=== PATIENT | male | born 1940 | race Caucasian/White ===

== ENCOUNTER 2019-02-10 09:33 | Outpatient (CLI) | payer BC, SELFPAY ==
--- NOTE | 2019-02-10 09:29 | DI.RAD_ITS ---
SYMPTOMS/DIAGNOSIS: LT KNEE PAIN LEFT KNEE: Two views were obtained. There is minimal hypertrophic spurring of the bones of the knee. No other bony or soft tissue abnormality is seen.
== END 2019-02-10 09:53 ==
PROVIDERS: PCP Neuromusculoskeletal Medicine & OMM; Visit Provider Physician Assistant
DX: M25.562 Pain in left knee (principal)
CPT/HCPCS: 73560

== ENCOUNTER → 2021-07-09 10:45 | Outpatient (BNVA) | payer MEDICARE, OTHER, SELFPAY | PROVIDERS: PCP Neuromusculoskeletal Medicine & OMM; Referring Provider Neuromusculoskeletal Medicine & OMM; Visit Provider Student in an Organized Health Care Education/Training Program | DX: M75.81 Other shoulder lesions, right shoulder (principal); M17.11 Unilateral primary osteoarthritis, right knee | CPT/HCPCS: 20610; 99204; 99214; J1040 ==

== ENCOUNTER 2021-07-26 09:49 | Outpatient (CLI) | payer MEDICARE, OTHER, SELFPAY ==
--- NOTE | 2021-07-26 09:00 | DI.RAD_ITS ---
Exam(s) XR STANDING ALIGNMENT XR KNEE RT 1V EXAM: XR STANDING ALIGNMENT and XR knee RT 1 V CLINICAL HISTORY: R knee arthritis, evaluate alignment. TECHNIQUE: 2D digital imaging was performed. Six views were obtained. COMPARISON: CR RIGHT KNEE LIMITED 1 OR 2 VIEW from 01/14/2018 FINDINGS: There are mild degenerative changes seen in the hips. Moderately severe degenerative changes are note d in the lumbar spine. Moderately severe degenerative changes are noted in the right hip. Findings in clude joint space narrowing subchondral sclerosis and periarticular spurring. The findings are most m arked in the medial and patellofemoral joints. There is a small joint effusion on the right knee. In the left knee, more mild degenerative changes are present with mild joint space narrowing and periart icular spurring noted in the medial femoral tibial joint. The ankles are well maintained. Atheroscler osis is present in the soft tissues. The right lower extremity measures 86.7 cm. The left lower extre mity measures 87.6 cm. IMPRESSION: Moderately severe osteoarthritis in the right knee. DATA REPOSITORY: RADIATION DOSE DELIVERED:
== END 2021-07-26 09:50 | disposition home or self-care (01) ==
LOC: DIORS 09:49
PROVIDERS: PCP Neuromusculoskeletal Medicine & OMM; Referring Provider Neuromusculoskeletal Medicine & OMM; Visit Provider Student in an Organized Health Care Education/Training Program
DX: M17.11 Unilateral primary osteoarthritis, right knee (principal)
CPT/HCPCS: 20610; 73560; 77073; J1040

== ENCOUNTER → 2021-10-08 09:56 | Outpatient (BNVA) | payer MEDICARE, OTHER, SELFPAY | PROVIDERS: PCP Neuromusculoskeletal Medicine & OMM; Referring Provider Neuromusculoskeletal Medicine & OMM; Visit Provider Student in an Organized Health Care Education/Training Program | DX: M75.101 Unspecified rotator cuff tear or rupture of right shoulder, not specified as traumatic (principal); M12.811 Other specific arthropathies, not elsewhere classified, right shoulder; M75.82 Other shoulder lesions, left shoulder | CPT/HCPCS: 20610; 99214; J1040 ==

== ENCOUNTER 2021-12-11 09:21 | Outpatient (CLI) | payer MEDICARE, OTHER, SELFPAY ==
--- NOTE | 2021-12-11 08:45 | DI.RAD_ITS ---
Exam(s) XR SHOULDER RT COMPLETE 2+V EXAM: XR SHOULDER RT COMPLETE 2+V CLINICAL HISTORY: right rotator cuff f/u. TECHNIQUE: 2D digital imaging was performed. COMPARISON: CR XR SHOULDER RT COMPLETE 2+V from 09/12/2020 CR XR SHOULDER LT COMPLETE 2+V from 12/11/2021 FINDINGS: Again noted is evidence of previous rotator cuff surgery with 2 fastener devices at the level the gre ater tuberosity of the humeral head, these appearing unchanged. There has also been decompression agrawal rgery at the ipsilateral AC joint which appears widened. Subacromial space is somewhat diminished al though there is no prominent superior subluxation of the humeral head in the glenoid fossa. Mild deg enerative changes in the glenohumeral joint are noted including a small osteophyte on the inferior ar ticular surface of the humeral head. Bone density is normal. No osseous lesions. IMPRESSION: DATA REPOSITORY: RADIATION DOSE DELIVERED:
--- NOTE | 2021-12-11 08:45 | DI.RAD_ITS ---
Exam(s) XR SHOULDER LT COMPLETE 2+V EXAM: XR SHOULDER LT COMPLETE 2+V CLINICAL HISTORY: left rotator cuff f/u. TECHNIQUE: 2D digital imaging was performed. COMPARISON: CR LEFT SHOULDER COMPLETE from 12/25/2016 CR XR SHOULDER RT COMPLETE 2+V from 09/12/2020 FINDINGS: No evidence of fracture or dislocation. There are mild-moderate degenerative changes in the glenohum eral joint including small osteophytes on the inferior articular surfaces of the osseous glenoid and adjacent humeral head. There are no calcific densities in the subacromial space. Mild degenerative changes are noted in the AC joint. Bone density is normal. IMPRESSION: DATA REPOSITORY: RADIATION DOSE DELIVERED:
== END 2021-12-11 09:22 | disposition home or self-care (01) ==
LOC: DIORS 09:22
PROVIDERS: PCP Neuromusculoskeletal Medicine & OMM; Referring Provider Neuromusculoskeletal Medicine & OMM; Visit Provider Student in an Organized Health Care Education/Training Program
DX: M75.82 Other shoulder lesions, left shoulder (principal); M19.012 Primary osteoarthritis, left shoulder; M19.011 Primary osteoarthritis, right shoulder
CPT/HCPCS: 99214; 73030

== ENCOUNTER 2021-12-19 00:57 | Outpatient (CLI) | payer MEDICARE, SELFPAY ==
--- NOTE | 2021-12-19 06:45 | DI.CT_ITS ---
Exam(s) CT UPPER EXTREMITY RT WO EXAM: CT UPPER EXTREMITY RT WO CLINICAL HISTORY: RTSA planning,ARTHRITIS RT GLENOHUMERAL JOINT,M19.011. TECHNIQUE: Imaging Protocol: Axial computed tomography images with coronal and sagittal reformatted images were created and reviewed. COMPARISON: CR XR SHOULDER RT COMPLETE 2+V from 12/11/2021 FINDINGS: This is a nondiagnostic examination for pre-surgical planning. Bones: The osseous structures and articular surfaces are intact. There is superior subluxation of t he humeral head which may reflect chronic rotator cuff tear. No cellulitic or osteomyelitic changes are identified. Degenerative changes are seen in the glenohumeral joint with joint space narrowing a nd periarticular spurring. There also degenerative changes seen at the acromioclavicular joint. No lytic or sclerotic lesions are identified. Postsurgical changes are seen in the humeral head. Soft Tissues: Atherosclerosis of the thoracic aorta is noted. Moderate centrilobular and paraseptal emphysematous changes are present in the lungs. There is a 3 mm nodule in the right upper lobe. IMPRESSION: 1. Postsurgical and degenerative changes seen in the right shoulder. 2. 3 mm right upper lobe nodule. For high risk patients, (history of smoking or other relevant histo ry) a follow-up CT scan of the chest in 12 months should be considered. (Kristyn et al., 2017) RADIATION DOSE DELIVERED: 839.9mGy.cm Total DLP 839.9mGy.cm Total DLP DATA REPOSITORY: All CT scans at this facility are submitted to the National Radiology Data Registry (NRDR) Dose Index Registry (DIR) with the [employer] (ACR). RADIATION OPTIMIZATION: All CT scans at this facility use at least one of these dose optimization te chniques: automated exposure control; mA and/or kV adjustment per patient size (includes targeted exa ms where dose is matched to clinical indication); or iterative reconstruction.
== END 2021-12-19 01:17 ==
PROVIDERS: PCP Neuromusculoskeletal Medicine & OMM; Visit Provider Student in an Organized Health Care Education/Training Program
DX: M19.011 Primary osteoarthritis, right shoulder (principal); R91.8 Other nonspecific abnormal finding of lung field
CPT/HCPCS: 73200

== ENCOUNTER → 2021-12-24 09:39 | Outpatient (BNVA) | payer MEDICARE, SELFPAY | PROVIDERS: PCP Neuromusculoskeletal Medicine & OMM; Referring Provider Neuromusculoskeletal Medicine & OMM | DX: M17.12 Unilateral primary osteoarthritis, left knee (principal); M17.11 Unilateral primary osteoarthritis, right knee | CPT/HCPCS: 20610; J1040 ==

== ENCOUNTER → 2022-01-21 13:07 | Outpatient (BNVA) | payer MEDICARE, SELFPAY | PROVIDERS: PCP Neuromusculoskeletal Medicine & OMM; Referring Provider Neuromusculoskeletal Medicine & OMM; Visit Provider Student in an Organized Health Care Education/Training Program | DX: M75.101 Unspecified rotator cuff tear or rupture of right shoulder, not specified as traumatic (principal); M12.811 Other specific arthropathies, not elsewhere classified, right shoulder; M75.21 Bicipital tendinitis, right shoulder; T81.32XA Disruption of internal operation (surgical) wound, not elsewhere classified, initial encounter; M66.811 Spontaneous rupture of other tendons, right shoulder | CPT/HCPCS: 99214 ==

== ENCOUNTER 2022-02-04 04:11 | Outpatient (CLI) | payer MEDICARE, SELFPAY ==
[2022-02-04 12:28] LABS: Source Nasal/Nares
[2022-02-04 23:08] LABS: COVID-19 PCR Negative (Negative)
== END 2022-02-04 04:12 | disposition home or self-care (01) ==
LOC: LBO 04:11
PROVIDERS: PCP Neuromusculoskeletal Medicine & OMM; Visit Provider Student in an Organized Health Care Education/Training Program
DX: Z20.822 Contact with and (suspected) exposure to COVID-19 (principal); Z01.818 Encounter for other preprocedural examination
CPT/HCPCS: 87635; U0005

== ENCOUNTER 2022-02-06 07:54 | Day surgery (SDC) | payer MEDICARE, SELFPAY ==
[2022-02-06] VITALS (12 sets, daily range): BP systolic 134–168; BP diastolic 57–99; PULSE 49–87; RESP 16–23; TEMP 36.2–36.5; O2SAT 95–98; BMI 25.5
--- NOTE | 2022-02-06 08:24 | W.ANESPRE ---
General Info Date of Service Date Performed: 02/06/22 Height: 5 ft 5 in Weight: 69.7 kg Body Mass Index (BMI): 25.5 Surgical Procedure: Operation Date: 02/06/22 08:40 Proposed Procedure Side Surgeon p Shoulder Total Arthroplasty Reverse, Bicep Tenodesis, and any other indicated procedures Right Harpal Saravia MD Meds Allergies and Home Medications Allergies Allergy/AdvReac Type Severity Reaction Status Date / Time No Known Drug Allergies Allergy Verified 02/06/22 08:51 Home Medication Medication Instructions Recorded Centrum Silver Tablet 1 ea PO DAILY #1 01/27/14 atorvastatin 40 mg tablet 40 mg PO DAILY #1 tab-cap 01/27/14 lisinopril 5 mg tablet 5 mg PO DAILY #1 tab-cap 01/27/14 omega 7-ans-bbv-fish oil 1,000 mg 1,000 mg PO DAILY 12/25/16 (120 mg-180 mg) capsule (Fish Oil) acidophilus 25 million 1 ea PO DAILY 01/14/18 cell-pectin, citrus 100 mg tablet naproxen sodium 220 mg capsule 440 mg PO PRN PRN 01/14/18 (Aleve) aspirin 81 mg tablet,delayed 162 mg PO DAILY tab 07/09/21 release famotidine 10 mg tablet 10 mg PO DAILY 12/11/21 fluticasone propionate 50 1 spray INTRANASAL DAILY 01/21/22 mcg/actuation nasal spray,suspension (Flonase Allergy Relief) Current Visit Medications: Current Medications Generic Name Dose Route Start Last Admin Trade Name Freq PRN Reason Stop Dose Admin Ringer's Solution 1,000 mls @ 100 mls/hr 02/06/22 06:00 IV 03/07/22 23:59 INFUSION ANTHONY Cefazolin Sodium/Dextrose 2 gm in 50 mls @ 100 mls/hr 02/06/22 06:00 Ancef Duplex IVPB 02/06/22 16:00 PREOP ANTHONY Tranexamic Acid 1,000 mg/ 60 mls @ 360 mls/hr 02/06/22 06:00 Sodium Chloride IVPB 02/06/22 16:00 PREOP ANTHONY IV Miscellaneous Supplies 1 each 02/06/22 06:00 Iv Access IV 03/07/22 23:59 DIRECTED ANTHONY Sodium Chloride 0 ml 02/06/22 06:00 Normal Saline Flush 10 Ml Syr IV 03/07/22 23:59 PRN PRN Sodium Chloride 0 ml 02/06/22 06:00 Normal Saline 10 Ml Vial IJ 03/07/22 23:59 DIRECTED PRN Sterile Water 0 ml 02/06/22 06:00 Water,Injection,Sterile 10 Ml Vial IJ 03/07/22 23:59 DIRECTED PRN PFSH Active Problems Active Problems: Problem Status Onset Code Primary osteoarthritis of right knee M17.11 Primary osteoarthritis of left knee M17.12 Tendonitis of left rotator cuff M75.82 Rotator cuff tear arthropathy of right shoulder M75.101, M12.811 Tendonitis of long head of biceps brachii of right shoulder M75.21 Rupture of left proximal biceps tendon S46.212A Medical History Medical History Claudication History of dizziness History of dizziness and giddiness History of peptic ulcer History of ventral hernia ventral incisional hernia Hypertensive disorder Peripheral vascular disease Spinal stenosis of cervical region Spinal stenosis of lumbar region Surgical History Surgical History H/O hernia repair 2018 H/O neck surgery 2016 anterior cervical discectomy w/plated fusion C3/4, 4/5, 5/6 H/O Spinal surgery Lumbar spine surgery 2016 H/O vascular surgery [id number] bypass per pt. History of carpal tunnel release right 2019, right, left [facility] 2016 History of cataract surgery 2019 left, 2020 right History of colonoscopy History of knee surgery 1963, 1977 History of surgery Partial removal of stomach Hx of cervical spine surgery 1988 S/P trigger finger release right ring finger Status post arthroscopy of right shoulder (~2004) Tobacco Smoking/Tobacco Use Status: Former Tobacco Use Alcohol Alcohol Intake: former Substance Use Substance use: Never Substance use type: does not use Vital Signs and Lab Results Vital Signs Most Recent Vital Signs in EMR: Most Recent Vital Signs Temp Pulse Resp BP Pulse Ox 36.5 C 87 16 164/81 H 95 02/06/22 08:17 02/06/22 08:17 02/06/22 08:17 02/06/22 08:17 02/06/22 08:17 Lab Results Blood Type / Crossmatch: No Data to Display Complete Blood Count: No Data to Display Complete Metabolic Panel: No Data to Display Liver Function Panel: No Data to Display Coagulation Panel: No Data to Display Cardiac Panel: No Data to Display Arterial Blood Gas: No Data to Display Venous Blood Gas: No Data to Display Pancreas Panel: No Data to Display Thyroid Panel: No Data to Display Infectious Disease: Coronavirus (COVID-19)(PCR) Negative (Negative) 02/04/22 10:42 02/04/22 Coronavirus 2019 Source Nasal/Nares 02/04/22 10:42 02/04/22 Blood Cultures: No Data to Display Toxicology Panel: No Data to Display Anesthesia Assessment and Plan Anesthesia History Personal History: No History of Anesthesia Complications Family History: No Family History of Anesthesia Complications Exercise Tolerance Exercise Tolerance: Metabolic Equivalents>4 Pertinent Negatives Pertinent Negatives: No Symptoms of GERD, No Major Cardiovascular Symptoms or Complaints, No Major Pulmonary Symptoms or Complaints and No History of CVA/TIA Cardiac & Pulmonary Exam Cardiac Exam: Normal S1/S2 Heart Sounds Pulmonary Exam: Clear Bilateral Breath Sounds Implantable Cardiac Device Does patient have a Pacemaker or an ICD?: No Airway Exam Known Difficult Airway: No Mallampati Class: 3 Mouth Opening: Normal (> 3cm) Thyromental Distance: Greater than 3 cm Neck Range of Motion: Full ROM Neck Circumference: Normal Teeth Condition: Loose or Chipped and Removable Dentures/Plates Upper ASA Classification ASA Score: ASA 2 Emergency Case?: No NPO Status NPO Status: NPO Clears >2 hours, Solids >8 hours Anesthesia Plan Resuscitation Status: Full Code Anesthesia Technique: General Anesthesia Airway Planned: Endotracheal Tube Pain Management: Surgeon and patient request nerve block Monitors Used: Standard Monitors
--- NOTE | 2022-02-06 08:45 | DI.RAD_ITS ---
Exam(s) XR SHOULDER RT COMPLETE 2+V EXAM: XR SHOULDER RT COMPLETE 2+V CLINICAL HISTORY: Postop. TECHNIQUE: 2D digital imaging was performed of the right shoulder. Four images were obtained. AP a nd Y views were obtained. COMPARISON: CR XR SHOULDER RT COMPLETE 2+V from 12/11/2021 FINDINGS: BONES: No acute fracture is present. No bony destructive lesion is seen. JOINTS: The patient is now status post right total reverse shoulder replacement. SOFT TISSUE: Postsurgical changes are seen in the soft tissues. IMPRESSION: Status post right shoulder replacement. DATA REPOSITORY: RADIATION DOSE DELIVERED:
[2022-02-06] MEDS: Lactated Ringers 1,000 ML 100 ML IV ×2 (08:52→13:07)
[2022-02-06] MEDS: ceFAZolin 2 GM/50 ML BAG IVPB (09:17)
--- NOTE | 2022-02-06 09:38 | W.ANESNERVE ---
Nerve Block Single Injection Procedure Date and Time Date Performed: 02/06/22 Procedure Start: 08:55 Location Where Procedure Performed Procedure Location: Day Surgery Unit Reason Performed: Postoperative Analgesia Requesting Provider: Harpal Saravia Timeout Performed Timeout Performed: Yes Monitoring Used ECG, Blood Pressure and SpO2 Sterility Sterility: Hand Hygiene, Surgical Cap, Surgical Mask, Sterile Gloves, Eye Protection and Chlorhexidine Sedation Given During Procedure Sedation Given (Indicate Dose Given): Versed IV Dose:: 2mg Patient Mental Status Patient Mental Status: Sedate with meaningful communication Nerve Block 1st Nerve Block: Laterality: Right Block Type: Interscalene Needle / Catheter Used: 100mm SonoPlex II Local Anesthetic Bolus (Indicate Dose Given): Lidocaine used for local infiltration of skin, Bupivacaine 0.5% Dose:: 10ml and Exparel Dose:: 10ml Additives (Indicate Dose Given): None Ultrasound: Sterile probe cover and gel used Ultrasound Image Saved?: Yes Nerve Stimulator: Not Used Paresthesia: None Procedure Tolerated: Patient tolerated well Procedure Outcome: Successful Performed By: Jenniffer Kang Supervised By: Mita Eason
[2022-02-06] MEDS: Bupivacaine 0.25% Pres-Free 30 ML VIAL (10:08)
--- NOTE | 2022-02-06 14:14 | W.ANESPOSTOP ---
Postoperative Evaluation Date, Time and Location Date Performed: 02/06/22 Time Performed: 14:14 Patient Location: Day Surgery Unit Vital Signs Most Recent Imported Vital Signs: Most Recent Vital Signs Temp Pulse Resp BP Pulse Ox 36.2 C L 53 L 23 151/77 H 96 02/06/22 13:55 02/06/22 13:55 02/06/22 13:55 02/06/22 13:55 02/06/22 13:55 Pain Score Most Recent Pain Score: Most Recent Pain Score Pain Level 3 02/06/22 13:55 Assessment Mental Status: Arousable with meaningful communication Airway and Respiratory Function: Patent airway with normal (patient baseline) respiratory exam Cardiovascular Function: Hemodynamically Stable Hydration Status: Adequately Hydrated Nausea & Vomiting: No Nausea or Vomiting Pain: Pain is tolerable per patient Peripheral Nerve Block: Regional nerve block not resolved at time of post operative discharge
[2022-02-06] MEDS: oxyCODONE 5 MG TAB PO (15:01)
--- NOTE | 2022-02-06 15:09 | PDOC.DSDIS_ITS ---
Discharge Plan Disposition Patient Disposition: HOME Condition: Stable Discharge Details Reason For Visit: Right shoulder surgery Attending Provider: Harpal Saravia Primary Care Provider: Gael Eisenberg Home Meds and New Rx's Prescriptions: New naproxen 250 mg tablet 250 - 500 mg PO BID PRNQty: 40 0RF Rx Instructions: take with a meal oxycodone 5 mg tablet 5 - 10 mg PO Q4H MDD 30 mg PRN (Reason: moderate to severe pain) Qty: 18 0RF Continued aspirin 81 mg tablet,delayed release (DR/EC) 162 mg PO DAILY 0RF famotidine 10 mg tablet 10 mg PO DAILY 0RF fluticasone propionate [Flonase Allergy Relief] 50 mcg/actuation spray,suspension 1 spray intranasal DAILY 0RF Rx Instructions: administer into each nostril atorvastatin 40 MG tablet 40 mg PO DAILY Qty: 1 0RF lisinopril 5 MG tablet 5 mg PO DAILY Qty: 1 0RF CENTRUM SILVER TABLET 1 EACH tablet 1 ea PO DAILY Qty: 1 0RF omega 6-zfj-hhx-fish oil [Fish Oil] 1,000 MG capsule 1,000 mg PO DAILY 0RF acidophilus-pectin, citrus 1 EACH tablet 1 ea PO DAILY 0RF Discontinued ibuprofen 200 MG capsule 200 mg PO PRN PRN0RF Label Comments: 01.14.18 pt states he uses Aleve instead of ibuprofen.HE naproxen sodium [Aleve] 220 MG capsule 440 mg PO PRN PRN0RF Discharge Instructions Additional Instructions: Surgery: Right reverse total shoulder arthroplasty with biceps tenodesis and removal of hardware Activity: Do not lift anything heavier than a coffee. You should keep your arm a t your side in a neutral position at all times except for gentle range of motion exercises, physical therapy, and essential activities. You should use the sling whenever you are out of the house. You may have to adjust the abduction pillow or remove it for comfort. At home it is best to remove the sling and rest the arm on a pillow at your side or support the operative side with your other hand. A physical therapy prescription will be sent electronically to start in about 3 weeks. Reverse TSA Protocol: Postoperative Weeks 0-6 ?Immobilization: Sling may be removed for therapeutic exercises, resting in bed or chair, and bathing ?Motion exercises: Pendulum exercises, elbow range- of-motion exercises, wrist [id number]-[id number] exercises, and group sales manager strengthening ?Restrictions: No active internal rotation or backwards extension Postoperative Weeks 6-12 ?Immobilization: Sling discontinued ?Motion exercises: Shoulder passive range of motion, advancing to active- assisted range of motion, and finally active range of motion with a goal of forward flexion to 90? and external rotation of 20? ?Strengthening exercises: Light, resisted forward flexion, external rotation, and abduction limited to isometric exercises and therapy bands with concentric motions only. Continue group sales manager strengthening ?Restrictions: No resisted internal rotation or backwards extension. No scapular retraction exercises with therapy bands Postoperative Months 3-12 ?Motion exercises: Increase [id number]-[id number] exercises to achieve full motion, with passive stretching at end ranges ?Strengthening: Begin resisted, internal rotation and backwards extension initially with isometric exercises advancing to light therapy bands and then weights. Advance other shoulder strengthening exercises to include the rotator cuff, deltoid, and scapular stabilizers. Advance to functional strengthening, including plyometric exercises and core strengthening. Prescriptions: Resume home Aspirin 81 mg twice daily starting tomorrow morning Naproxen 250 mg take 1-2 every 12 hours with a meal as needed for moderate pain Oxycodone 5 mg take 1-2 every 4-6 hours as needed for severe pain You may use ibip-ivx-uzrbmmf Tylenol (acetaminophen) as needed for mild pain. These pain medications may be taken all at once or in different combinations as needed. Also, recommend Colace (docusate) as a stool softener as surgery and pain medicine cause constipation. Dressings: Leave dressing in place until follow-up. Keep clean and dry at all times. No showers please. Follow-up: 10-[address] Saravia Please call the office during business hours with any questions or concerns. Let us know right away if you develop any redness, drainage, fevers, chest pain, or trouble breathing. Do not drink alcohol or drive for at least 24 hours after anesthesia. Stand Alone Forms: Anesthesia Discharge Inst., Junior.Nerve Block Instructions, Braulio Milton ([facility]) Referrals: Harpal Saravia MD [ [facility] STAFF PHYSICIAN] - Discharge Orders Discharge Orders: Discharge Order (Routine); Ordered 02/06/22 Ordered By: Harpal Saravia DS: Diagnosis Discharge Diagnosis (1) Rotator cuff tear arthropathy of right shoulder: Status: Acute (2) Tendonitis of long head of biceps brachii of right shoulder: Status: Acute
--- NOTE | 2022-02-06 15:22 | W.PM.OP ---
Date of service: 02/06/22 Time of Service: 15:09 Operative Note Operative Note DATE OF PROCEDURE: 02/06/22 PRE-OP DIAGNOSIS: Right: 1. Rotator cuff arthopathy 2. Long head of the biceps tendinopathy 3. Retained prior greater tuberosity rotator cuff repair metallic screws POST-OP DIAGNOSIS: same PROCEDURE: Right: 1. Reverse total shoulder arthroplasty, CPT # 30313 2. Open biceps tenodesis, CPT # 58669 3. Removal of deep hardware, CPT #15934: 3x metal corkscrew suture anchors greater tuberosity The lead recreation assistant was medically required as this procedure involves retraction, protection of neurovascular structures, and manipulation of multiple instruments and implants at the same time, which cannot be done without a skilled lead recreation assistant. SURGEON: Harpal Saravia COMPUTER SCIENCE TEACHER: Miguel Bradford Refer to Anesthesia Record ESTIMATED BLOOD LOSS: 150 PATHOLOGY: none sent TOURNIQUET TIME: 0 COMPLICATIONS: None Patient was transported to: PACU Patient's condition: stable Implants: [employer] modular glenoid system baseplate 24 mm+2mm lateralized [employer] modular glenoid system central screw 25 mm [employer] modular glenoid system peripheral locking screws 32 mm inferior, 24 mm superior, 16mm posterior, 20mm anterior [employer] modular glenoid system glenosphere 39 +4 mm lateralized [employer] humeral stem 135 degrees size 9 [employer] suture cup size 39 central offset [employer] humeral spacer size 39 +9 mm [employer] humeral insert size 39 +3 mm Indications: Please see complete medical record for details. Findings: Significant long head of the biceps tendon tenosynovitis. Largely intact but contractured subscapularis. Near?complete supraspinatus and infraspinatus rotator cuff tear. Moderate eccentric glenoid wear posteriorly and superiorly. Procedure Description: In the operating room, general anesthesia was induced. The patient was positioned beachchair on the operating room table. All bony prominences were well-padded. Preoperative antibiotics were administered. The shoulder was prepped and draped in the usual sterile fashion for shoulder arthroplasty. The correct patient, procedure, and side of the procedure were all verified prior to incision. The deltopectoral approach was taken to the anterior shoulder. It was preinjected superficially with 30 cc of lidocaine bupivacaine with epinephrine mixture. Care was taken to bluntly dissect the interval between the deltoid and pectoralis major muscles and to identify the cephalic vein within its fat stripe. The the vein was mobilized laterally. Subdeltoid space and conjoined tendon were freed of adhesions. The long head of the biceps tendon was identified just lateral to the lesser tuberosity. The uppermost margin of the pectoralis major tendon was released from the proximal humerus. The long head of the biceps tendon was tenodesed in situ using 2x SutureTape in a pfmgmn-lf-jhaal fashion securing it superior margin the pectoralis major tendon. The biceps tendon was amputated and followed proximally to identify the rotator interval. A subscapularis peel was performed taking care to release the entirety tendon in a full-thickness fashion from superior to inferior and lateral to medial while bringing the arm gradually into external rotation. Care was taken to avoid the axillary nerve by only working on the bone inferiorly and medially. The subscapularis was later tagged with suture tape and the stitch used for traction and release anteriorly and posteriorly to confirm adequate excursion and tissue quality for later repair. Appropriate coagulation was achieved especially inferiorly. There were 2 prominent suture anchors in the humeral head that were removed with a rongeur leaving a small bone void at the superior central and lateral greater tuberosity. The surgical neck was cut using an oscillating saw and the head bone brought back table in case there was a need for future bone grafting. The proximal humeral protection plate was used to provisionally confirm suture cup and glenosphere size and then gently impacted over the bone cut. Attention was then turned to the glenoid and retractors were placed and a 360 degree release performed using the long head of the biceps remnant to remove soft tissue about the glenoid rim. The axillary nerve was palpated but not exposed inferiorly. Care was taken inferiorly to work on bone only between 5 and 7:00 o'clock and bluntly elevate tissues inferiorly. The glenoid was decorticated soft tissue and a minimal amount of residual cartilage. Once adequate exposure had been achieved, the VIP guide was placed on the glenoid and used to confirm placement and trajectory of the central guidepin. The guidepin was inserted by hand using the VIP location and trajectory as a reference, and advanced just into the far cortex ensuring adequate central screw length. Depth gauge was used to confirm appropriate central screw length. The central reamer followed by the peripheral reamer were then used to the appropriate depths. There was appropriate eccentric reaming inferiorly and anteriorly. The drill and then tap for the central screw was then used and withdrawn with the guidewire in place confirming appropriate length. The baseplate was screwed and fully compressed onto the glenoid surface. Testing the glenoid baseplate resulted in movement through the entire scapula. The over baseplate reamer was used to confirm adequate peripheral reaming had been achieved. The locking guide and drill were used to drill for inferior and superior baseplate locking screws. The depth gauge was used to confirm appropriate screw length and they were each gently engaged. This was repeated for the anterior and posterior locking screws, and then all tightened once all screws were placed to reduce risk of rotating the baseplate. The lateralized glenosphere was applied with the performance improvement manager and then impacted to engage the Hughes taper. It was then locked with appropriate countersinking of the setscrew. The glenosphere was inspected and found to have good fit, appropriate positioning, and no soft tissue or bony impingement especially inferiorly. Attention was then turned back to the proximal humerus, which was delivered from the wound and maintained in external rotation. The protective plate was removed and reamers were started appropriately posterior to the bicipital groove taking care to maintain lateralized alignment so as to be straight in line with the humeral canal. Reaming was done up to size 7. The broaches were sequentially used to open the proximal humerus starting with a size 5 and going up to size 9 and sunk to the appropriate depth while maintaining approximately 30 degrees retroversion. The size 9 had good metaphyseal fit and rotational control the humerus. The central guide was used to ream for the suture cup. The humeral trial cup was connected. Trialing was commenced with +3mm. The shoulder was reduced and taken through range of motion. It was felt too slightly loose in terms of stability and tension on the conjoined tendon and deltoid. Trialing components were then built up to +12 total with appropriate tension on the deltoid, conjoined tendon, and good stability. Range of motion was tested past 90 degrees forward elevation, 75 degrees external rotation, internal rotation to the patient's side, and there was no appreciable impingement or notching with the arm in full adduction. The trial components were removed from the proximal humerus. The wound was copiously irrigated with normal saline. A 2 mm drill was used to drill 2 drill holes in the bicipital groove for later subscapularis suture passage repair. The the proximal humeral stem and suture cup were assembled on the back table. They were brought over to the proximal humerus. 2 pairs of suture tape were then passed through the lateral suture cup holes and then withdrawn with a Hewson suture passer through the drill holes. Additional 2 pairs of sutures were brought through the medial aspect of the suture cup for later repair. Humerus and suture cup were appropriately impacted into the proximal humerus. There were tested and found of excellent rotational control and fixation. Trial reduction for stability and range of motion was done again with the +9 mm combination liner confirming inadequate tension and stability with +12 mm combination showing best stability and tension with +15 mm obviously too much. The trial liner was removed and the definitive liner connected. Shoulder was reduced and these final implants demonstrated excellent range of motion and stability. The shoulder was copiously irrigated with Betadine and then normal saline. Vancomycin powder was distributed deeply about the shoulder and through subcutaneous tissues. The arm was placed in 45 degrees of external rotation. The subscapularis was reduced and repaired over the implant to the lessor tuberosity using the pairs of SutureTape sutures from the suture cup in a speed bridge type fashion. The arm was taken past 60 degrees of external rotation without any motion limitation or displacement of the subscapularis repair. The deltopectoral interval was well opposed. Subcutaneous tissue was irrigated then closed using 2-0 Monocryl in a buried interrupted fashion. The skin was closed using 3-0 Monocryl in a buried subcuticular fashion. Skin glue was applied to the incision. A silver impregnated bandage was placed over the incision. The extremity was placed into a shoulder immobilizer. The patient awoke from anesthesia without complication and was taken to the recovery room in stable condition.
[2022-02-06] MEDS: ceFAZolin 1 GM/50 ML BAG IVPB (15:47)
== END 2022-02-06 16:52 | disposition home or self-care (01) ==
PROVIDERS: PCP Neuromusculoskeletal Medicine & OMM; Visit Provider Student in an Organized Health Care Education/Training Program
PROC: (CPT 23472; principal; 2022-02-06 08:30)
DX: M75.101 Unspecified rotator cuff tear or rupture of right shoulder, not specified as traumatic (principal); M75.21 Bicipital tendinitis, right shoulder; I73.9 Peripheral vascular disease, unspecified; I10 Essential (primary) hypertension
CPT/HCPCS: 20680; 23430; 23472; 76942; 73030; C1781; J0690; J1100; J1885; J2250; J2370; J2405; J2704

== ENCOUNTER 2022-02-19 10:38 | Outpatient (CLI) | payer MEDICARE, SELFPAY ==
--- NOTE | 2022-02-19 10:15 | DI.RAD_ITS ---
Exam(s) XR SHOULDER RT COMPLETE 2+V EXAM: XR SHOULDER RT COMPLETE 2+V CLINICAL HISTORY: s/p right TSA TECHNIQUE: COMPARISON: CR XR SHOULDER RT COMPLETE 2+V from 02/06/2022 FINDINGS: Three views were obtained and show a reverse shoulder prosthesis in position. Components appear well seated. No other significant bony abnormality seen. IMPRESSION: RADIATION DOSE DELIVERED: Total DLP
== END 2022-02-19 10:39 | disposition home or self-care (01) ==
LOC: DIORS 10:38
PROVIDERS: PCP Neuromusculoskeletal Medicine & OMM; Referring Provider Neuromusculoskeletal Medicine & OMM; Visit Provider Physician Assistant
DX: Z96.611 Presence of right artificial shoulder joint (principal); Z47.1 Aftercare following joint replacement surgery; M75.101 Unspecified rotator cuff tear or rupture of right shoulder, not specified as traumatic; M12.811 Other specific arthropathies, not elsewhere classified, right shoulder; M75.21 Bicipital tendinitis, right shoulder
CPT/HCPCS: 73030

== ENCOUNTER 2022-04-09 11:14 | Outpatient (CLI) | payer MEDICARE, SELFPAY ==
--- NOTE | 2022-04-09 10:45 | DI.RAD_ITS ---
Exam(s) XR SHOULDER RT COMPLETE 2+V EXAM: XR SHOULDER RT COMPLETE 2+V CLINICAL HISTORY: RIGHT SHOULDER F/U. TECHNIQUE: 2D digital imaging was performed. COMPARISON: CR XR SHOULDER RT COMPLETE 2+V from 02/19/2022 FINDINGS: 3 views There is stable position alignment of the components of prosthesis. No fracture. Nor loosening evid ent. IMPRESSION: DATA REPOSITORY: RADIATION DOSE DELIVERED:
== END 2022-04-09 11:15 | disposition home or self-care (01) ==
LOC: DIORS 11:15
PROVIDERS: PCP Neuromusculoskeletal Medicine & OMM; Referring Provider Neuromusculoskeletal Medicine & OMM; Visit Provider Student in an Organized Health Care Education/Training Program
DX: Z96.611 Presence of right artificial shoulder joint (principal); M17.11 Unilateral primary osteoarthritis, right knee; M17.12 Unilateral primary osteoarthritis, left knee; S46.212A Strain of muscle, fascia and tendon of other parts of biceps, left arm, initial encounter; X58.XXXA Exposure to other specified factors, initial encounter
CPT/HCPCS: 20610; 99214; 73030; J1040

== ENCOUNTER 2022-05-06 13:35 | Outpatient (CLI) | payer MEDICARE, SELFPAY ==
--- NOTE | 2022-05-06 13:15 | DI.RAD_ITS ---
Exam(s) XR SHOULDER RT COMPLETE 2+V EXAM: XR SHOULDER RT COMPLETE 2+V CLINICAL HISTORY: right shoulder f/u. TECHNIQUE: 2D digital imaging was performed. COMPARISON: CR XR SHOULDER RT COMPLETE 2+V from 04/09/2022 FINDINGS: 3 views Reverse prosthesis again noted. Components appear to remain in satisfactory position alignment. No fracture or loosening evident. There is no radiographic evidence of osteomyelitis. IMPRESSION: DATA REPOSITORY: RADIATION DOSE DELIVERED:
== END 2022-05-06 13:36 | disposition home or self-care (01) ==
LOC: DIORS 13:36
PROVIDERS: PCP Neuromusculoskeletal Medicine & OMM; Referring Provider Neuromusculoskeletal Medicine & OMM; Visit Provider Student in an Organized Health Care Education/Training Program
DX: Z96.611 Presence of right artificial shoulder joint (principal); Z47.1 Aftercare following joint replacement surgery; M75.101 Unspecified rotator cuff tear or rupture of right shoulder, not specified as traumatic; M17.11 Unilateral primary osteoarthritis, right knee; M17.12 Unilateral primary osteoarthritis, left knee; M75.82 Other shoulder lesions, left shoulder; S46.212A Strain of muscle, fascia and tendon of other parts of biceps, left arm, initial encounter; X58.XXXA Exposure to other specified factors, initial encounter
CPT/HCPCS: 99213; 73030

== ENCOUNTER 2022-06-11 11:46 | Outpatient (CLI) | payer MEDICARE, SELFPAY ==
--- NOTE | 2022-06-11 11:15 | DI.RAD_ITS ---
Exam(s) XR SHOULDER RT COMPLETE 2+V EXAM: XR SHOULDER RT COMPLETE 2+V CLINICAL HISTORY: right shoulder pain TECHNIQUE: COMPARISON: CR XR SHOULDER RT COMPLETE 2+V from 05/06/2022 FINDINGS: Two views were obtained and show a reverse shoulder prosthesis in position. The components appear we ll seated. No other significant bony abnormality seen. IMPRESSION: RADIATION DOSE DELIVERED: Total DLP
== END 2022-06-11 11:47 | disposition home or self-care (01) ==
LOC: DIORS 11:47
PROVIDERS: PCP Neuromusculoskeletal Medicine & OMM; Referring Provider Neuromusculoskeletal Medicine & OMM; Visit Provider Physician Assistant
DX: Z96.611 Presence of right artificial shoulder joint; Z47.1 Aftercare following joint replacement surgery; M75.101 Unspecified rotator cuff tear or rupture of right shoulder, not specified as traumatic; M12.811 Other specific arthropathies, not elsewhere classified, right shoulder; M75.82 Other shoulder lesions, left shoulder; S46.212A Strain of muscle, fascia and tendon of other parts of biceps, left arm, initial encounter; X58.XXXA Exposure to other specified factors, initial encounter
CPT/HCPCS: 99214; 73030

== ENCOUNTER 2022-07-23 10:39 | Outpatient (CLI) | payer MEDICARE, SELFPAY ==
--- NOTE | 2022-07-23 10:15 | DI.RAD_ITS ---
Exam(s) XR SHOULDER RT COMPLETE 2+V EXAM: XR SHOULDER RT COMPLETE 2+V CLINICAL HISTORY: RIGHT SHOULDER F/U. TECHNIQUE: 2D digital imaging was performed. COMPARISON: CR XR SHOULDER RT COMPLETE 2+V from 06/11/2022 FINDINGS: Two views. Stable position alignment of the components of the reverse prosthesis. No fracture or loosening evid ent. IMPRESSION: Stable. DATA REPOSITORY: RADIATION DOSE DELIVERED:
== END 2022-07-23 10:40 | disposition home or self-care (01) ==
LOC: DIORS 10:41
PROVIDERS: PCP Neuromusculoskeletal Medicine & OMM; Referring Provider Neuromusculoskeletal Medicine & OMM; Visit Provider Student in an Organized Health Care Education/Training Program
DX: Z96.611 Presence of right artificial shoulder joint (principal); M75.101 Unspecified rotator cuff tear or rupture of right shoulder, not specified as traumatic; M12.811 Other specific arthropathies, not elsewhere classified, right shoulder; M75.82 Other shoulder lesions, left shoulder; S46.212A Strain of muscle, fascia and tendon of other parts of biceps, left arm, initial encounter; X58.XXXA Exposure to other specified factors, initial encounter
CPT/HCPCS: 99213; 73030

== ENCOUNTER 2022-09-09 11:01 | Outpatient (CLI) | payer MEDICARE, SELFPAY ==
--- NOTE | 2022-09-09 10:45 | DI.RAD_ITS ---
Exam(s) XR SHOULDER RT COMPLETE 2+V EXAM: XR SHOULDER RT COMPLETE 2+V CLINICAL HISTORY: right shoulder f/u. TECHNIQUE: 2D digital imaging was performed. Two images were obtained. AP and Y views were obtained . COMPARISON: CR XR SHOULDER RT COMPLETE 2+V from 07/23/2022 FINDINGS: BONES: There are stable post operative changes present. No fracture or dislocation. JOINTS: The orthopedic hardware is in good position. No evidence of hardware loosening. SOFT TISSUE: Normal. IMPRESSION: Stable postoperative changes. DATA REPOSITORY: RADIATION DOSE DELIVERED:
== END 2022-09-09 11:02 | disposition home or self-care (01) ==
LOC: DIORS 11:01
PROVIDERS: PCP Neuromusculoskeletal Medicine & OMM; Referring Provider Neuromusculoskeletal Medicine & OMM; Visit Provider Student in an Organized Health Care Education/Training Program
DX: Z96.611 Presence of right artificial shoulder joint (principal); M75.101 Unspecified rotator cuff tear or rupture of right shoulder, not specified as traumatic; M12.811 Other specific arthropathies, not elsewhere classified, right shoulder; M75.82 Other shoulder lesions, left shoulder; S46.212D Strain of muscle, fascia and tendon of other parts of biceps, left arm, subsequent encounter; X58.XXXD Exposure to other specified factors, subsequent encounter
CPT/HCPCS: 99214; 73030

== ENCOUNTER 2022-10-01 02:41 | Outpatient (CLI) | payer MEDICARE, SELFPAY ==
--- NOTE | 2022-10-01 07:00 | DI.CT_ITS ---
Exam(s) CT UPPER EXTREMITY RT WO EXAM: CT UPPER EXTREMITY RT WO CLINICAL HISTORY: Reverse TSA pain,mechanical catching, loosening, arthritis rt glenohumeral TECHNIQUE: Imaging Protocol: Axial computed tomography images with coronal and sagittal reformatted images were created and reviewed. CONTRAST MATERIAL: Intravenous: None- COMPARISON: CT CT UPPER EXTREMITY RT WO from 12/19/2021 FINDINGS: There is a reverse prosthesis in place. No obvious fracture or loosening.. No radiographic evidence of osteomyelitis. IMPRESSION: Prosthesis appears intact. No obvious fracture or loosening. RADIATION DOSE DELIVERED: 780.65mGy.cm Total DLP DATA REPOSITORY: All CT scans at this facility are submitted to the National Radiology Data Registry (NRDR) Dose Index Registry (DIR) with the [employer] ([employer]). RADIATION OPTIMIZATION: All CT scans at this facility use at least one of these dose optimization te chniques: automated exposure control; mA and/or kV adjustment per patient size (includes targeted exa ms where dose is matched to clinical indication); or iterative reconstruction.
== END 2022-10-01 03:01 ==
PROVIDERS: PCP Neuromusculoskeletal Medicine & OMM; Visit Provider Student in an Organized Health Care Education/Training Program
DX: M25.511 Pain in right shoulder (principal); M19.011 Primary osteoarthritis, right shoulder; Z96.611 Presence of right artificial shoulder joint
CPT/HCPCS: 73200

== ENCOUNTER 2022-10-01 03:40 | Outpatient (CLI) | payer MEDICARE, SELFPAY ==
[2022-10-01 08:50] LABS: Abs Immature Grans 0.02 10^3/uL (0.0-0.06); Absolute Basophil Count 0.04 10^3/uL (0.0-0.2); Absolute Eosinophil Count 0.46 10^3/uL (0.0-0.7); Absolute Lymphocyte Count 1.66 10^3/uL (1.2-3.4); Absolute Monocyte Count 0.75 10^3/uL (0.1-0.8); Absolute Neutrophil Count 3.55 10^3/uL (1.2-6.7); Basophils % 0.6; Eosinophils % 7.1; HCT 42.7 % (40.0-50.0); HGB 13.9 g/dL (13.5-17.5); Immature Grans % 0.3; Lymphocytes % 25.6; MCH 30.4 pg (27.0-33.0); MCHC 32.6 % (32.0-36.0); MCV 93 fL (80-95); Monocytes % 11.6; Neutrophils % 54.8; Platelet Count 228 10^3/uL (130-400); RBC 4.57 10^6/uL (4.36-5.78); RDW 12.7 % (11.8-14.1); RDW-SD 43.8 fL; WBC 6.48 10^3/uL (4.4-10.8)
[2022-10-01 08:55] LABS: ESR 16 mm/hr (0-20)
[2022-10-01 09:29] LABS: C-Reactive Protein 0.18 mg/dL (0.0-0.3)
== END 2022-10-01 03:41 | disposition home or self-care (01) ==
LOC: LBO 03:40
PROVIDERS: PCP Neuromusculoskeletal Medicine & OMM; Visit Provider Student in an Organized Health Care Education/Training Program
DX: M25.511 Pain in right shoulder (principal); M19.011 Primary osteoarthritis, right shoulder; Z96.611 Presence of right artificial shoulder joint
CPT/HCPCS: 36415; 85652; 73200; 85025; 86140

== ENCOUNTER → 2022-10-08 10:28 | Outpatient (BNVA) | payer MEDICARE, SELFPAY | PROVIDERS: PCP Neuromusculoskeletal Medicine & OMM; Referring Provider Neuromusculoskeletal Medicine & OMM; Visit Provider Student in an Organized Health Care Education/Training Program | DX: M75.82 Other shoulder lesions, left shoulder (principal); M75.101 Unspecified rotator cuff tear or rupture of right shoulder, not specified as traumatic; M12.811 Other specific arthropathies, not elsewhere classified, right shoulder; Z96.611 Presence of right artificial shoulder joint | CPT/HCPCS: 20610; 99214; J1030 ==

== ENCOUNTER → 2022-11-17 09:48 | Outpatient (BNVA) | payer MEDICARE, SELFPAY | PROVIDERS: PCP Neuromusculoskeletal Medicine & OMM; Referring Provider Neuromusculoskeletal Medicine & OMM; Visit Provider Student in an Organized Health Care Education/Training Program | DX: M17.11 Unilateral primary osteoarthritis, right knee (principal); I10 Essential (primary) hypertension; R42 Dizziness and giddiness | CPT/HCPCS: 99214 ==

== ENCOUNTER 2023-02-18 11:09 | Outpatient (CLI) | payer MEDICARE, SELFPAY ==
--- NOTE | 2023-02-18 10:15 | DI.RAD_ITS ---
Exam(s) XR SHOULDER RT COMPLETE 2+V EXAM: XR SHOULDER RT COMPLETE 2+V CLINICAL HISTORY: F/U TSA. TECHNIQUE: 2D digital imaging was performed. Three images were obtained. AP, axillary and Y views w ere obtained. COMPARISON: CR XR SHOULDER RT COMPLETE 2+V from 09/09/2022 FINDINGS: BONES: There are stable post operative changes present. No fracture or dislocation. JOINTS: The orthopedic hardware is in good position. No evidence of hardware loosening. SOFT TISSUE: Normal. IMPRESSION: Stable postoperative changes. DATA REPOSITORY: RADIATION DOSE DELIVERED:
== END 2023-02-18 11:10 | disposition home or self-care (01) ==
LOC: DIORS 11:09
PROVIDERS: PCP Neuromusculoskeletal Medicine & OMM; Referring Provider Neuromusculoskeletal Medicine & OMM; Visit Provider Student in an Organized Health Care Education/Training Program
DX: M75.101 Unspecified rotator cuff tear or rupture of right shoulder, not specified as traumatic; M17.11 Unilateral primary osteoarthritis, right knee; M17.12 Unilateral primary osteoarthritis, left knee; M75.82 Other shoulder lesions, left shoulder
CPT/HCPCS: 20610; 99214; 73030; J1030

== ENCOUNTER 2023-06-09 10:28 | Outpatient (CLI) | payer MEDICARE, SELFPAY ==
--- NOTE | 2023-06-09 09:15 | DI.RAD_ITS ---
Exam(s) XR ANKLE LT COMPLETE EXAM: XR ANKLE LT COMPLETE CLINICAL HISTORY: LEFT ANKLE PAIN TECHNIQUE: 2D digital imaging was performed of the left ankle. Three images were obtained. AP, lat eral and oblique views were obtained. COMPARISON: CR XR STANDING ALIGNMENT from 07/26/2021 FINDINGS: BONES: No acute fracture is present. No bony destructive lesion is seen. There is again seen a well c orticated osseous density at the tip of the lateral malleolus. This is unchanged compared to the cody or examination. JOINTS:The ankle mortise is normally aligned. SOFT TISSUE: Normal. IMPRESSION: No acute abnormality. DATA REPOSITORY: RADIATION DOSE DELIVERED:
== END 2023-06-09 10:29 | disposition home or self-care (01) ==
LOC: DIORS 10:28
PROVIDERS: PCP Neuromusculoskeletal Medicine & OMM; Referring Provider Neuromusculoskeletal Medicine & OMM; Visit Provider Student in an Organized Health Care Education/Training Program
DX: M67.88 Other specified disorders of synovium and tendon, other site; S86.012A Strain of left Achilles tendon, initial encounter; X58.XXXA Exposure to other specified factors, initial encounter
CPT/HCPCS: 99214; 73610

== ENCOUNTER 2023-06-10 01:29 | Outpatient (CLI) | payer MEDICARE, SELFPAY ==
--- NOTE | 2023-06-10 13:55 | DI.MRI_ITS ---
Exam(s) MR LOWER JOINT LT WO EXAM: MR LOWER JOINT LT WO CLINICAL HISTORY: pre-existing tendinopathy,RUPTURE LT ACHILLES TENDON, S86.012A TECHNIQUE: Multiplanar multisequence MRI was performed without intravenous contrast. COMPARISON: CR XR ANKLE LT COMPLETE from 06/09/2023 FINDINGS: BONES/JOINTS: No fracture or contusion pattern. Small subchondral cysts are seen in the lateral aspec t of the distal fibula. There is a small osteochondral lesion of the lateral aspect of the talar dom e. The ankle mortise is maintained. No joint effusion is present. LIGAMENTS: The tibiofibular and calcaneofibular ligaments are intact. The talofibular ligaments are i ntact. The deltoid ligament is intact. The syndesmosis is unremarkable. Sinus tarsi is normal. MUSCULOTENDINOUS STRUCTURES: Achilles tendon: There is a complete tear of the Achilles tendon 7 cm proximal to its insertion site onto the calcaneus. There is surrounding edema. Plantar fascia: Unremarkable. Anterior Extensor tendons: Unremarkable. Posterior Tibialis: Unremarkable. Flexor Digitorum longus: Unremarkable. Flexor Hallucis longus: Unremarkable. Peroneus longus: Unremarkable. Peroneus brevis:Unremarkable. SOFT TISSUES: There is edema seen in the soft tissues around the ankle. No focal fluid collection is seen. OTHER FINDINGS: None. IMPRESSION: Complete tear of the Achilles tendon 7 cm proximal to its insertion site onto the calcaneus. There i s associated surrounding edema. No focal fluid collection is seen. DATA REPOSITORY:
== END 2023-06-10 01:49 ==
LOC: DI 01:30
PROVIDERS: PCP Neuromusculoskeletal Medicine & OMM; Visit Provider Student in an Organized Health Care Education/Training Program
DX: S86.012A Strain of left Achilles tendon, initial encounter (principal); X58.XXXA Exposure to other specified factors, initial encounter
CPT/HCPCS: 73721

== ENCOUNTER → 2023-06-23 09:47 | Outpatient (BNVA) | payer MEDICARE, SELFPAY | PROVIDERS: PCP Neuromusculoskeletal Medicine & OMM; Visit Provider Student in an Organized Health Care Education/Training Program | DX: X58.XXXA Exposure to other specified factors, initial encounter (principal); S86.012A Strain of left Achilles tendon, initial encounter | CPT/HCPCS: 99213 ==

== ENCOUNTER → 2023-07-28 09:50 | Outpatient (BNVA) | payer MEDICARE, SELFPAY | PROVIDERS: PCP Neuromusculoskeletal Medicine & OMM; Referring Provider Neuromusculoskeletal Medicine & OMM; Visit Provider Student in an Organized Health Care Education/Training Program | DX: X58.XXXA Exposure to other specified factors, initial encounter (principal); M67.88 Other specified disorders of synovium and tendon, other site; S86.012A Strain of left Achilles tendon, initial encounter | CPT/HCPCS: 99213 ==

== ENCOUNTER 2023-09-08 10:50 | Outpatient (CLI) | payer MEDICARE, SELFPAY ==
--- NOTE | 2023-09-08 10:30 | DI.RAD_ITS ---
Exam(s) XR KNEE LT 3V AP,LAT,TIERNEY EXAM: XR KNEE LT 3V AP,LAT,TIERNEY CLINICAL HISTORY: pain. TECHNIQUE: 2D digital imaging was performed. COMPARISON: CR XR KNEE RT 1V from 07/26/2021 CR XR STANDING ALIGNMENT from 07/26/2021 FINDINGS: 3 views There is no evidence of fracture. Mild amount of increased joint fluid noted. There is significant narrowing of the medial compartment seen on the weight-bearing view, similar to July 2021 images . Lateral compartment exhibits normal height. Patellofemoral compartment unremarkable. Bone density normal. No osseous lesions. IMPRESSION: Significant osteoarthritic degenerative narrowing of the medial compartment of the left knee but with similar appearance to 07/26/21 DATA REPOSITORY: RADIATION DOSE DELIVERED:
--- NOTE | 2023-09-08 10:30 | DI.RAD_ITS ---
Exam(s) XR KNEE RT 3V AP,LAT,TIERNEY EXAM: XR KNEE RT 3V AP,LAT,TIERNEY CLINICAL HISTORY: pain. TECHNIQUE: 2D digital imaging was performed. COMPARISON: CR XR STANDING ALIGNMENT from 07/26/2021 CR XR KNEE LT 3V AP,LAT,TIERNEY from 09/08/2023 FINDINGS: 3 views No evidence of fracture. Small amount of increased joint fluid noted. There is [id number] narrowi ng of the medial compartment as well as marginal osteophytes. Similar to 2020. Lateral compartment exhibits normal height but with mild chondrocalcinosis. There are mild-moderate degenerative changes in the patellofemoral compartment IMPRESSION: Advanced degenerative narrowing of the medial compartment similar to 07/26/2021. The amount of narro wing of the medial compartment of the right knee is more than the amount of narrowing of the medial c ompartment of the opposite-left knee. Both knee medial compartments appear similar when compared to radiographs of 07/26/2021. DATA REPOSITORY: RADIATION DOSE DELIVERED:
== END 2023-09-08 10:51 | disposition home or self-care (01) ==
LOC: DIORS 10:50
PROVIDERS: PCP Neuromusculoskeletal Medicine & OMM; Referring Provider Neuromusculoskeletal Medicine & OMM; Visit Provider Student in an Organized Health Care Education/Training Program
DX: M17.12 Unilateral primary osteoarthritis, left knee (principal); M17.11 Unilateral primary osteoarthritis, right knee; S86.012D Strain of left Achilles tendon, subsequent encounter; X58.XXXD Exposure to other specified factors, subsequent encounter
CPT/HCPCS: 20610; 73562; 99214; J1030

== ENCOUNTER → 2023-12-08 09:41 | Outpatient (BNVA) | payer MEDICARE, SELFPAY | PROVIDERS: PCP Neuromusculoskeletal Medicine & OMM; Referring Provider Neuromusculoskeletal Medicine & OMM; Visit Provider Student in an Organized Health Care Education/Training Program | DX: S86.012D Strain of left Achilles tendon, subsequent encounter (principal); X58.XXXD Exposure to other specified factors, subsequent encounter; M17.11 Unilateral primary osteoarthritis, right knee; M17.12 Unilateral primary osteoarthritis, left knee | CPT/HCPCS: 99214 ==

== ENCOUNTER → 2024-03-01 08:46 | Outpatient (BNVA) | payer MEDICARE, SELFPAY | PROVIDERS: PCP Neuromusculoskeletal Medicine & OMM; Referring Provider Neuromusculoskeletal Medicine & OMM | DX: S86.012D Strain of left Achilles tendon, subsequent encounter (principal); X58.XXXD Exposure to other specified factors, subsequent encounter | CPT/HCPCS: 99213 ==

== ENCOUNTER → 2024-08-08 09:39 | Outpatient (BNVA) | payer MEDICARE, SELFPAY | PROVIDERS: PCP Neuromusculoskeletal Medicine & OMM; Referring Provider Neuromusculoskeletal Medicine & OMM; Visit Provider Student in an Organized Health Care Education/Training Program | DX: M17.11 Unilateral primary osteoarthritis, right knee (principal); Z95.5 Presence of coronary angioplasty implant and graft | CPT/HCPCS: 99214 ==

== ENCOUNTER → 2024-09-08 10:50 | Outpatient (BNVA) | payer MEDICARE, SELFPAY | PROVIDERS: PCP Neuromusculoskeletal Medicine & OMM; Referring Provider Neuromusculoskeletal Medicine & OMM; Visit Provider Student in an Organized Health Care Education/Training Program | DX: M17.11 Unilateral primary osteoarthritis, right knee (principal); M17.12 Unilateral primary osteoarthritis, left knee | CPT/HCPCS: 20610; J1010 ==

== ENCOUNTER 2025-02-03 11:07 | Outpatient (CLI) | payer MEDICARE, SELFPAY ==
--- NOTE | 2025-02-03 11:10 | DI.RAD_ITS ---
Exam(s) XR KNEE RT 1V XR STANDING ALIGNMENT EXAM: XR STANDING ALIGNMENT and XR knee RT 1 V CLINICAL HISTORY: R KNEE OA/PRE OP. TECHNIQUE: 2D digital imaging was performed. Five images were obtained. COMPARISON: CR XR STANDING ALIGNMENT from 07/26/2021 CR XR KNEE RT 3V AP,LAT,TIERNEY from 09/08/2023 CR XR KNEE LT 3V AP,LAT,TIERNEY from 09/08/2023 FINDINGS: BONES: The hips are well maintained. In the right knee, there is again seen marked degenerative grubbs ge present. The findings are most marked in the medial femoral tibial and patellofemoral joints and are characterized by joint space narrowing and osteophytes. There is a small joint effusion. In the left knee, there is mild narrowing of the medial femoral tibial joint. The ankles are well maintain ed.There is no significant leg length discrepancy. SOFT TISSUE: Vascular calcifications are seen in the soft tissues. IMPRESSION: Marked osteoarthritis of the right knee. Mild degenerative changes of the left knee. DATA REPOSITORY: RADIATION DOSE DELIVERED:
== END 2025-02-03 11:08 | disposition home or self-care (01) ==
LOC: DIORS 11:08
PROVIDERS: PCP Neuromusculoskeletal Medicine & OMM; Visit Provider Physician Assistant
DX: M17.11 Unilateral primary osteoarthritis, right knee (principal)
CPT/HCPCS: 99214; 73560; 77073

== ENCOUNTER 2025-02-03 12:17 | Outpatient (CLI) | payer MEDICARE, SELFPAY | END 2025-02-03 12:18 | disposition home or self-care (01) | LOC: LBO 12:17 | PROVIDERS: PCP Neuromusculoskeletal Medicine & OMM; Visit Provider Student in an Organized Health Care Education/Training Program | CPT/HCPCS: 99213; 99214 ==

== ENCOUNTER 2025-06-01 06:02 | Day surgery (SDC) | payer MEDICARE, SELFPAY ==
[2025-06-01] VITALS (21 sets, daily range): BP systolic 102–140; BP diastolic 35–77; PULSE 52–87; RESP 13–22; TEMP 36.1–36.8; O2SAT 91–98; BMI 22.6
[2025-06-01] MEDS: Gabapentin 300 MG CAP PO (06:59)
[2025-06-01] MEDS: Celecoxib 200 MG CAP 400 MG PO (06:59)
[2025-06-01] MEDS: Acetaminophen 500 MG TAB 1000 MG PO (07:00)
--- NOTE | 2025-06-01 07:04 | W.ANESPRE ---
General Info Date of Service Date Performed: 06/01/25 Height: 5 ft 5 in Weight: 61.8 kg Body Mass Index (BMI): 22.6 Surgical Procedure: Operation Date: 06/01/25 07:40 Proposed Procedure Side Surgeon p Knee Total Arthroplasty, Cementless CR Right Jean Claude Valencia MD Meds Allergies and Home Medications Allergies Allergy/AdvReac Type Severity Reaction Status Date / Time No Known Allergies Allergy Verified 06/01/25 06:24 Home Medication ?Medication ?Instructions ?Recorded Centrum Silver Tablet 1 ea PO DAILY ##1 01/27/14 omega 4-bel-vah-fish oil 1,000 mg 1,000 mg PO DAILY 12/25/16 (120 mg-180 mg) capsule (Fish Oil) acidophilus 25 million 1 ea PO DAILY 01/14/18 cell-pectin, citrus 100 mg tablet famotidine 10 mg tablet 10 mg PO DAILY PRN 12/11/21 amlodipine 10 mg tablet 10 mg PO DAILY 12/18/22 multivitamin 1 tab PO DAILY 12/18/22 ibuprofen 400 mg tablet 400 mg PO TID 02/18/23 tamsulosin 0.4 mg capsule 0.4 mg PO HS 06/09/23 aspirin 81 mg tablet,delayed 81 mg PO DAILY 12/08/23 release lisinopril 40 mg tablet 40 mg PO DAILY 12/08/23 metoprolol succinate 25 mg 25 mg PO DAILY 12/08/23 tablet,extended release 24 hr rosuvastatin 20 mg tablet 20 mg PO DAILY 12/08/23 docusate sodium 100 mg capsule 100 mg PO DAILY 02/03/25 polyethylene glycol 3350 17 17 g PO DAILY 02/03/25 gram/dose oral powder (Miralax) donepezil 5 mg tablet 5 mg PO HS 05/31/25 Current Visit Medications: Current Medications Generic Name Dose Route Start Last Admin Trade Name Freq PRN Reason Stop Dose Admin Acetaminophen 1,000 mg 06/01/25 06:00 06/01/25 07:00 Acetaminophen 500 Mg Tab PO 06/01/25 23:59 1,000 mg PREOP ANTHONY Administration Celecoxib 400 mg 06/01/25 06:00 06/01/25 06:59 Celecoxib 200 Mg Cap PO 06/01/25 23:59 400 mg PREOP ANTHONY Administration Gabapentin 300 mg 06/01/25 06:00 06/01/25 06:59 Gabapentin 300 Mg Cap PO 06/01/25 23:59 300 mg PREOP ANTHONY Administration Ringer's Solution 1,000 mls @ 80 mls/hr 06/01/25 06:00 IV 06/01/25 23:59 INFUSION ANTHONY Cefazolin Sodium/Dextrose 2 gm in 50 mls @ 100 mls/hr 06/01/25 06:00 Ancef Duplex IVPB 06/01/25 23:59 PREOP ANTHONY Tranexamic Acid/Sodium Chloride 1,000 mg in 100 mls @ 600 mls/hr 06/01/25 06:00 IVPB 06/01/25 23:59 PREOP ANTHONY IV Miscellaneous Supplies 1 each 06/01/25 06:00 Iv Access IV 06/01/25 23:59 DIRECTED ANTHONY Sodium Chloride 0 ml 06/01/25 06:00 Normal Saline Flush 10 Ml Syr IV 06/01/25 23:59 PRN PRN Sodium Chloride 0 ml 06/01/25 06:00 Normal Saline 10 Ml Vial IJ 06/01/25 23:59 DIRECTED PRN Sterile Water 0 ml 06/01/25 06:00 Water,Injection,Sterile 10 Ml Vial IJ 06/01/25 23:59 DIRECTED PRN PFSH Active Problems Active Problems: Problem Status Onset Code Bilateral Achilles tendonosis Acute M67.88 Rupture of left Achilles tendon Acute 06/07/23 S86.012A Cyst of ear canal Acute Q18.1 Arthritis of left glenohumeral joint Acute M19.012 Postnasal drip Acute R09.82 Sensorineural hearing loss (SNHL) of both ears Acute H90.3 Status post replacement of right shoulder joint Acute 02/06/22 Z96.611 Primary osteoarthritis of right knee Chronic M17.11 Primary osteoarthritis of left knee Chronic M17.12 Rotator cuff tear arthropathy of right shoulder Acute M75.101, M12.811 Rupture of left proximal biceps tendon Acute S46.212A Medical History Medical History 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 Ventral incisional hernia Shoulder pain Right knee pain Hyperlipidemia Dizziness and giddiness Cubital tunnel syndrome Carpal tunnel syndrome Epistaxis History of ventral hernia ventral incisional hernia History of dizziness History of dizziness and giddiness History of peptic ulcer Spinal stenosis of lumbar region Spinal stenosis of cervical region Peripheral vascular disease Claudication Hypertensive disorder Tendonitis of long head of biceps brachii of right shoulder Surgical History Surgical History S/P drug eluting coronary stent placement 01/19/24 [facility] [place] History of incisional hernia repair History of arthroplasty of right shoulder S/P trigger finger release right ring finger H/O Spinal surgery Lumbar spine surgery 2016 Hx of cervical spine surgery 1988 H/O neck surgery 2016 anterior cervical discectomy w/plated fusion C3/4, 4/5, 5/6 H/O hernia repair 2018 H/O vascular surgery [id number] bypass per pt. History of surgery Partial removal of stomach History of knee surgery 1963, 1977 History of carpal tunnel release right 2019, right, left CTR 2016 History of colonoscopy History of cataract surgery 2019 left, 2020 right Status post arthroscopy of right shoulder (~2004) Tobacco Smoking/Tobacco Use Status: Former Tobacco Use Passive smoking exposure: No Alcohol Alcohol Intake: former Substance Use Substance use: Never Substance use type: does not use Vital Signs and Lab Results Vital Signs Most Recent Vital Signs in EMR: Most Recent Vital Signs Temp Pulse Resp BP Pulse Ox 36.7 C 53 L 16 140/50 L 97 06/01/25 06:10 06/01/25 06:10 06/01/25 06:10 06/01/25 06:10 06/01/25 06:10 Imaging and Studies Imaging and Studies Study information below may be from another EMR and interpreted by another provider. Please see original notes in EMR for more complete details. Echocardiogram Summary: nov 2023 EF 65-70 no sig valve dx Anesthesia Assessment and Plan Anesthesia History Personal History: No History of Anesthesia Complications Family History: No Family History of Anesthesia Complications Exercise Tolerance Exercise Tolerance: Metabolic Equivalents>4 Pertinent Negatives Pertinent Negatives: No Symptoms of GERD, No Major Cardiovascular Symptoms or Complaints, No Major Pulmonary Symptoms or Complaints and No History of CVA/TIA Cardiac & Pulmonary Exam Cardiac Exam: Normal S1/S2 Heart Sounds Pulmonary Exam: Clear Bilateral Breath Sounds Implantable Cardiac Device Does patient have a Pacemaker or an ICD?: No Airway Exam Known Difficult Airway: No Mallampati Class: 3 Mouth Opening: Normal (> 3cm) Thyromental Distance: Greater than 3 cm Neck Range of Motion: Full ROM Neck Circumference: Normal Teeth Condition: Loose or Chipped and Removable Dentures/Plates Upper ASA Classification ASA Score: ASA 3 Emergency Case?: No NPO Status NPO Status: NPO Clears >2 hours, Solids >8 hours Anesthesia Plan Resuscitation Status: Full Code Anesthesia Technique: Spinal Anesthesia Airway Planned: Natural Airway Pain Management: Surgeon and patient request nerve block Monitors Used: Standard Monitors Preoperative Comments:: discussed past lumbar spine sx, pt unable to elucidate level of spine sx. discussed that we will attempt non heroic spinal and have general as back up if that fails.
[2025-06-01] MEDS: Lactated Ringers 1,000 ML 80 ML IV (07:15)
--- NOTE | 2025-06-01 07:16 | W.PREOPHP ---
Assessment and Plan Assessment and plan (1) Primary osteoarthritis of right knee: Status: Chronic Assessment and plan: Doug is an 84-year-old male with known severe arthritis of both knees, worse in the right side. He is here today for right knee replacement. His constipation and diarrhea issues have improved. He has no active chest pain or shortness of breath although does have cardiac history. 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 Once again I reviewed knee replacement surgery with him. We discussed the necessary time for rehabilitation following the procedure. Furthermore, I went over in detail the possible complications of knee replacement. These include but are not limited to bleeding, infection, pain, stiffness, weakness, damage to nerves, damage to vessels, damage to muscle and tendon, fracture, leg length inequality, wound healing complications, instability, component loosening, and blood clot. Questions were answered. I again expressed that this is a surgery to improve functional quality of life. After a review of the presented information and risks, Doug desired to proceed. History of Present Illness Narrative: Doug is here today for his right knee. He has known severe arthritis of the right knee and is planned for a knee replacement. He was previously scheduled for this in the late spring. He had clearance from his primary care physician as well as cardiology. However, he was having some issues with constipation and diarrhea and thus postpone the surgery for this to be worked up more diligently. Since then he is doing better. He is more regular. He has less concerns about his bowels. He continues have pain about the right knee and desires to proceed with a right knee replacement. He denies any active chest pain or shortness of breath. Review of Systems All systems reviewed & are unremarkable except as noted in HPI and below PFSH All Active Problems Bilateral Achilles tendonosis (Acute) Rupture of left Achilles tendon (Acute 06/07/23) Cyst of ear canal (Acute) Arthritis of left glenohumeral joint (Acute) Postnasal drip (Acute) Sensorineural hearing loss (SNHL) of both ears (Acute) Status post replacement of right shoulder joint (Acute 02/06/22) Dr. Saravia Primary osteoarthritis of right knee (Chronic) Multiple injections, most recently 09/08/2024; 02/18/2023, 12/24/2021 Primary osteoarthritis of left knee (Chronic) Most Recent steroid injections: 09/08/2024, 02/18/2023, 12/24/2021; 02/10/2019. Rotator cuff tear arthropathy of right shoulder (Acute) Rupture of left proximal biceps tendon (Acute) Medical History History of gastrectomy [facility] current use of therapeutic drug Ventral incisional hernia Shoulder pain Right knee pain Hyperlipidemia Dizziness and giddiness Cubital tunnel syndrome Carpal tunnel syndrome Epistaxis History of ventral hernia ventral incisional hernia History of dizziness History of dizziness and giddiness History of peptic ulcer Spinal stenosis of lumbar region Spinal stenosis of cervical region Peripheral vascular disease Claudication Hypertensive disorder Tendonitis of long head of biceps brachii of right shoulder Surgical History S/P drug eluting coronary stent placement 01/19/24 [facility] [place] History of incisional hernia repair History of arthroplasty of right shoulder S/P trigger finger release right ring finger H/O Spinal surgery Lumbar spine surgery 2015 Hx of cervical spine surgery 1988 H/O neck surgery 2016 anterior cervical discectomy w/plated fusion C3/4, 4/5, 5/6 H/O hernia repair 2018 H/O vascular surgery [id number] bypass per pt. History of surgery Partial removal of stomach History of knee surgery 1963, 1977 History of carpal tunnel release right 2019, right, left CTR 2016 History of colonoscopy History of cataract surgery 2019 left, 2020 right Status post arthroscopy of right shoulder (~2005) Family History (Updated 02/03/22 @ 15:24 by Sarah Starkey RN) Other Dementia Suicide Social History Smoking/Tobacco Use Status: Former Tobacco Use Quit Date: 11/02/95 Smoking risk assessment performed?: Yes Alcohol Intake: former Drug use: Never Substance use type: does not use Housing: house Current gender identity: male Additional Social history: UTAP Meds Allergies and Home Medications Allergies Allergy/AdvReac Type Severity Reaction Status Date / Time No Known Allergies Allergy Verified 06/01/25 06:24 Home Medications ?Medication ?Instructions ?Recorded ?Confirmed ?Type Centrum Silver Tablet 1 ea PO DAILY ##1 01/27/14 06/01/25 History omega 5-mel-bfd-fish oil 1,000 mg 1,000 mg PO DAILY 12/25/16 05/31/25 History (120 mg-180 mg) capsule (Fish Oil) acidophilus 25 million 1 ea PO DAILY 01/14/18 05/31/25 History cell-pectin, citrus 100 mg tablet famotidine 10 mg tablet 10 mg PO DAILY PRN 12/11/21 06/01/25 History amlodipine 10 mg tablet 10 mg PO DAILY 12/18/22 06/01/25 History multivitamin 1 tab PO DAILY 12/18/22 05/31/25 History ibuprofen 400 mg tablet 400 mg PO TID 02/18/23 06/01/25 History tamsulosin 0.4 mg capsule 0.4 mg PO HS 06/09/23 06/01/25 History aspirin 81 mg tablet,delayed 81 mg PO DAILY 12/08/23 05/31/25 History release lisinopril 40 mg tablet 40 mg PO DAILY 12/08/23 06/01/25 History metoprolol succinate 25 mg 25 mg PO DAILY 12/08/23 06/01/25 History tablet,extended release 24 hr rosuvastatin 20 mg tablet 20 mg PO DAILY 12/08/23 06/01/25 History docusate sodium 100 mg capsule 100 mg PO DAILY 02/03/25 06/01/25 History polyethylene glycol 3350 17 17 g PO DAILY 02/03/25 06/01/25 History gram/dose oral powder (Miralax) donepezil 5 mg tablet 5 mg PO HS 05/31/25 06/01/25 History Exam Const General: cooperative, healthy appearing, comfortable and no acute distress Resp Auscultation: clear to auscultation bilaterally Cardio Rate: regular rate Rhythm: regular rhythm Results Last Vital Signs Temp 36.7 C 06/01/25 06:10 Pulse 53 L 06/01/25 06:10 Resp 16 06/01/25 06:10 BP 140/50 L 06/01/25 06:10 Pulse Ox 97 06/01/25 06:10
--- NOTE | 2025-06-01 07:17 | W.PM.DSUDISC ---
Date of service: 06/01/25 Discharge Plan Disposition Patient Disposition: Home Condition: Stable Discharge Details Attending Provider: Jean Claude Valencia Primary Care Provider: Gael Eisenberg Home Meds and New Rx's Prescriptions: New celecoxib 200 mg capsule 200 mg PO BID PRN (Reason: pain) Qty: 60 1RF acetaminophen 500 mg tablet 1,000 mg PO Q8H PRN (Reason: pain) Qty: 90 3RF dexamethasone 4 mg tablet 4 mg PO DAILY Qty: 2 0RF Rx Instructions: Starting Post-Operative Day #1 (Day after surgery) oxycodone 5 mg tablet 5 mg PO Q4H PRNQty: 18 0RF Continued famotidine 10 mg tablet 10 mg PO DAILY PRN tamsulosin 0.4 mg capsule 0.4 mg PO HS amlodipine 10 mg tablet 10 mg PO DAILY multivitamin Tablet 1 tab PO DAILY rosuvastatin 20 mg tablet 20 mg PO DAILY lisinopril 40 mg tablet 40 mg PO DAILY metoprolol succinate 25 mg tablet extended release 24 hr 25 mg PO DAILY polyethylene glycol 3350 [Miralax] 17 gram/dose powder 17 g PO DAILY docusate sodium 100 mg capsule 100 mg PO DAILY CENTRUM SILVER TABLET 1 EACH tablet 1 ea PO DAILY Qty: 1 omega 5-rmp-vzm-fish oil [Fish Oil] 1,000 MG capsule 1,000 mg PO DAILY acidophilus-pectin, citrus 1 EACH tablet 1 ea PO DAILY donepezil 5 mg tablet 5 mg PO HS Patient Comments: TAKE ONE TABLET BY MOUTH EVERY EVENING AT BEDTIME Changed aspirin 81 mg tablet,delayed release (DR/EC) 81 mg PO BIDWMEAL Qty: 60 0RF Discontinued ibuprofen 400 mg tablet 400 mg PO TID Discharge Instructions Additional Instructions: Total Knee Discharge Instructions Activity: The most important activity is to walk and to work on gentle motion (both flexion and extension). You should try to take short walks a few times a day. It is important that when resting you work on keeping the knee straight. Avoid putting a pillow behind the knee as this will encourage flexion. Work on range of motion exercises as provided by Physical Therapy. - Start outpatient physical therapy within 2 weeks. - You should wear the CONNIE hose on both legs for 2 weeks. You may remove these at night. You may also use any compression sock in place of the CONNIE hose. - Utilize [employer] to review exercises, see videos on exercises and obtain basic information pertaining to your surgery and your recovery. Dressing: Remove the Torito wrap by 2 days after your surgery and put on the CONNIE stocking given to you from the hospital. Keep the surgical dressing (underneath the TORITO wrap) in place for at least one week. After the first week it may be removed and replaced with light gauze and tape or nothing. The wound and dressing may get wet after 3 days but avoid soaking the dressing or otherwise it will need to be changed. Many people prefer covering the dressing with cling wrap (saran wrap) to minimize it from getting soaked. If it gets wet, just pat dry. If it starts to peel off then it will need to be changed. Medications: - You should take Tylenol and anti-inflammatory Celebrex as your primary pain control medications. If the Celebrex is too expensive or not covered, please call the office for another alternative (Advil/Ibuprofen or Naproxen/Aleve) - You have been prescribed a stronger pain medication Oxycodone for breakthrough pain, take as needed as prescribed. - You will continue your stomach acid reduction agent Famotidine to help reduce stomach acid and reflux. - You will be taking Aspirin 81mg twice a day for DVT prevention unless instructed otherwise and continue your regular medications. - You have also been prescribed Decadron to take to control post-operative nausea and pain. You will start this tomorrow. Follow-up: 2 weeks If you have any acute concerns or questions, please do not hesitate to contact the office at [phone]. You may contact Dr. Valencia with any questions after hours through the hospital at [phone] or on his cell phone at [phone]. Equipment/Supplies: Walker Activity:: Activity as Tolerated Remove Dressings/Wound Care:: Do Not Remove Shower/Bathe:: Cover Diet:: As Tolerated Discharge Orders Discharge Orders: Discharge Order (Routine); Ordered 06/01/25 Ordered By: Jean Claude Valencia DS: Diagnosis Discharge Diagnosis (1) Primary osteoarthritis of right knee: Status: Chronic
[2025-06-01] MEDS: ceFAZolin 2 GM/50 ML BAG IVPB (07:55)
--- NOTE | 2025-06-01 07:55 | W.PM.OP ---
Operative Note Operative Note PRE-OP DIAGNOSIS: Right Knee Arthritis POST-OP DIAGNOSIS: same PROCEDURE: Right Total Knee Replacement SURGEON: Jean Claude Valencia JIG BOX OPERATOR: Tamela Hassan ANESTHESIA TYPE: Spinal Refer to Anesthesia Record PATHOLOGY: none sent TOURNIQUET TIME: 0 COMPLICATIONS: None Patient was transported to: PACU Patient's condition: stable Implants: 1. Depuy Attune Cementless Cruciate Retaining Femoral Component, Size 6 2. Depuy Attune Cementless Fixed Bearing Tibial Component, Size 6 3. Depuy Attune 6x5mm [CR]/FB Poly Indications: I have seen Doug in clinic for symptoms of knee arthritis, confirmed with radiographic findings. He has exhausted nonoperative methods and was having significant limitations in daily function and desired better function and less pain. I discussed the technical details of a knee replacement. I explained the risks of the procedure to include, but not limited to, bleeding, infection, pain, stiffness, fracture, damage to nerves and vessels, damage to muscles and tendons, loosening, need for repeat procedure, blood clot and cardiopulmonary demise. Despite these risks, Doug elected to proceed. Findings: There was significant signs of arthritis throughout the knee mostly involving the media compartment. Procedure Description: Doug was greeted in the preoperative holding area where the correct side was identified and marked. The consent was reviewed with the patient and signed. The history and physical was updated. All questions were answered. Preoperative medications were administered: Acetaminophen 1000mg, Celebrex 400mg, and Gabapentin 300mg. An adductor canal block was then administered by the anesthesia team in the D[facility]. He was taken back to the operating room. A spinal anesthestic was attempted but unsuccessful and thus a general anesthetic was then administered. The patient was placed into the supine position on the operating room table. Posts were placed for positioning during the procedure. All bony prominences were well padded. Prophylactic antibiotics in the form of Cefazolin were administered. 1g of Tranxemic Acid was given intravenously within 30 minutes of incision. The right leg was then prepped with Chloraprep and draped in a standard fashion with impervious stockinette. A second prep with Chloraprep was performed prior to application of Iodine impregnated skin protection. A timeout to confirm correct identity, side and site, procedure, allergies, anesthesia, and medical concerns was performed. With the knee in some flexion, a midline incision was made overlying the knee. Full thickness skin flaps were raised once the extensor mechanism was encountered. These were raised medially and laterally. Any bleeding was controlled with electrocautery. Once the extensor mechanism was fully exposed, a medial parapatellar arthrotomy was performed in a flexed position. All bleeding from the arthrotomy and the geniculate arteries was coagulated. A medial subperiosteal peel was performed with electrocautery to the midcoronal plane. Due to the significant varus deformity the entire medial tibial plateau was exposed. The fat pad was removed while keeping the patellar tendon protected. The anterior distal femur synovium was removed for later visualization. The ACL and PCL were resected and the anterior horn of the lateral meniscus was transected. The knee was then flexed with the patella everted. Large osteophytes from the tibia were removed. Large osteophytes from the femur were removed. Using a step drill, and based on preoperative templating, the femoral canal was entered. This was done with a step drill without any difficulty. The intramedullary distal femoral cut guide was inserted, set to a 5 degree valgus cut and 9mm cut thickness. The distal femoral cut guide was then held in position and pinned. With the soft tissues protected, the distal cut was performed. This was passed over a few times to ensure a planar cut. I then turned attention to the tibia. The extramedullary guide was placed onto the leg. The distal aspect was slid medial to adjust for position of center of ankle and stay in line with shaft of the tibia. Approximately 5 degrees of posterior slope was kept in the proximal cutting guide. The center of the guide was aligned with the PCL. The stylus was used to assess cut thickness. The medial side, most involved side, was set for a 4mm cut. This was then held in position and pinned into place with 2 additional pins and a cross pin for stability. The medial and lateral collateral ligaments were protected and the cut was performed. With this completed, it was assessed and noted to be of appropriate dimensions. The guide was removed. A spacer block was inserted and the knee was brought into extension. The 5mm spacer block provided full extension, without hyperextension and with stability of both the medial and lateral collateral ligaments was assessed. The pins from the femur and the tibia were then removed. The distal femur was then sized. The anterior stylus was placed onto the lateral ridge of the anterior femur. This indicated a size 6 femur. The external rotation of the guide was adjusted to 3 degrees to match the epicondylar axis, perpendicular to Merced?s line. The 4-in-1 cutting guide was the placed. The posterior medial femur cut was evaluated and appeared of good thickness. The spacer block was inserted underneath the cutting guide and stability was confirmed in 90 degrees of flexion. An eric wing was used to confirm appropriate position of the anterior cut to avoid notching. This cutting guide was ensured to be flush on the cut surface and then pinned into place with headed pins. While protecting the soft tissues, quad tendon, and collateral ligaments, the anterior and posterior cuts were performed with a saw. The central two pins were removed and the posterior and anterior chamfers were cut next. The notch-cutting guide was placed. This was pinned to lateralize the femoral component as much as possible while keeping it flush on the cut surface. This was then pinned into position. A reciprocating saw was used to make the notch cut. A rasp smoothed the cut surfaces. The medial and lateral menisci were removed. A trial femoral component was then inserted, impacted down to the cut surfaces, and the lug holes were drilled. A provisional trial tibial component was placed and the knee was brought through range of motion. There was noted to be excellent extension and flexion. There was no significant instability. The patella was tracking without thumbs. A size 5mm polyethylene component provided the best range of motion and stability with less than 2mm gapping with medial and lateral stress and full extension without significant hyperextension. The tibial cut surface was fully exposed. The tibia was then sized as a 6. The tibia had been previously marked during trialing to correspond to the center of the tibial component to help with rotation. The trial was aligned to this kira, approximately rotated to the medial 1/3rd of the tibial tubercle. The trial was pinned into place. The tibia was prepared with a reamer and a keel punch and lug holes. The trial components were removed. The final components were opened on the back table. The periosteal and capsular tissues, especially posteriorly, around the knee were then systematically injected with a periarticular cocktail consisting of 246mg of Ropivacaine, 0.5mg of Epinephrine, 0.08mg of Clonidine, and 30mg of Ketorolac, diluted to 100cc. On the back table, with the implants opened. The cementless knee components were placed. Starting with the tibial component, the tibia was subluxed anteriorly and the lug holes of the component were lined up. The tibia was then impacted with an impactor and mallet until the tibial component was in contact with the tibia. The final polyethylene component was inserted. Then, the femoral component was inserted. The lug holes were aligned and the component was impacted into position. The knee was irrigated with Surgiphor Betadine solution. This was allowed to sit in the knee for 3 minutes and then it was irrigated out with saline. The patella was tracking with a no-thumbs technique. A complete synovectomy around the patella was performed and a lateral facetectomy was also completed. The capsule was then reapproximated with a No. 1 Vicryl at multiple locations. The capsule was finally closed with a No. 2 Stratafix, barbed suture. Deep tissues were then reapproximated with 0 Vicryl and 2-0 Vicryl. The skin was closed with a running 3-0 Monocryl in a subcuticular fashion. This was reinforced with skin glue. A Mepilex silver dressing was applied along with a [id number] SUSIE wrap. A CryoCuff was applied. Doug was transferred to the hospital bed without difficulty an suffering no apparent complication. Doug has a good prognosis. Physical therapy will start today and without restrictions, weight-bearing as tolerated. Aspirin 81mg BID will be used for DVT prophylaxis. Date of Procedure: 06/01/25
[2025-06-01] MEDS: TRANEXAMIC ACID/SOD. CHL. 1,000 MG/100 ML BAG 600 MG IVPB (08:05)
--- NOTE | 2025-06-01 09:45 | ANES.NERVE_ITS ---
Nerve Block Single Injection Procedure Date and Time Date Performed: 06/01/25 Procedure Start: : Location Where Procedure Performed Procedure Location: Day Surgery Unit Reason Performed: Postoperative Analgesia Requesting Provider: Jean Claude Valencia Timeout Performed Timeout Performed: Yes Monitoring Used ECG, Blood Pressure, SpO2 and See EMR for corresponding vital signs Sterility Sterility: Hand Hygiene, Surgical Cap, Surgical Mask, Sterile Gloves and Chlorhexidine Sedation Given During Procedure Sedation Given (Indicate Dose Given): Precedex IV Dose:: 8mcg Patient Mental Status Patient Mental Status: Sedate with meaningful communication Nerve Block 1st Nerve Block: Laterality: Right Block Type: Adductor Canal Ultrasound Image Saved?: Yes Needle / Catheter Used: 100mm SonoPlex II Local Anesthetic Bolus (Indicate Dose Given): Injected in 3-5ml increments after negative blood aspiration, Bupivacaine 0.25% Dose:: 10 mL and Exparel Dose:: 10 mL Additives (Indicate Dose Given): None Ultrasound: Sterile probe cover and gel used Nerve Stimulator: Supplement to Ultrasound use and No twitch or parasthesia noted < 0.5 mA Paresthesia: None Procedure Tolerated: No Complications and Patient tolerated well Procedure Outcome: Successful Performed By: Melony Wilkes Supervised By: Shemar Pratt 2nd Nerve Block: Laterality: Right Block Type: Other (anterior femoral cutaneous block ) Ultrasound Image Saved?: Yes Needle / Catheter Used: 100mm SonoPlex II Local Anesthetic Bolus (Indicate Dose Given): Injected in 3-5ml increments after negative blood aspiration and Bupivacaine 0.25% Dose:: 5 mL Additives (Indicate Dose Given): None Ultrasound: Sterile probe cover and gel used Nerve Stimulator: Supplement to Ultrasound use and No twitch or josefina thesia noted < 0.5 mA Paresthesia: None Procedure Tolerated: No Complications and Patient tolerated well Procedure Outcome: Successful Performed By: Shemar Pratt
--- NOTE | 2025-06-01 11:06 | PT.INIE ---
PT Notes Physical Therapy Day Surgery Initial Evaluation Date: 06/01/2025 Referring Doctor: Jean Claude Valencia MD PT Orders: PT CONSULT: S/P Ortho surgery Precautions: WBAT on the right LE with AD Patient Profile/Admitting Diagnosis: Doug is an 84-year-old male with primary osteoarthritis of the right hip and status post right total knee arthroplasty on postoperative day 0. PMHX: All Active Problems Bilateral Achilles tendonosis (Acute) Rupture of left Achilles tendon (Acute 06/07/23) Cyst of ear canal (Acute) Arthritis of left glenohumeral joint (Acute) Postnasal drip (Acute) Sensorineural hearing loss (SNHL) of both ears (Acute) Status post replacement of right shoulder joint (Acute 02/06/22) Dr. Saarvia Primary osteoarthritis of right knee (Chronic) Multiple injections, most recently 09/08/2024; 02/18/2023, 12/24/2021 Primary osteoarthritis of left knee (Chronic) Most Recent steroid injections: 09/08/2024, 02/18/2023, 12/24/2021; 02/10/2019. 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 Ventral incisional hernia Shoulder pain Right knee pain Hyperlipidemia Dizziness and giddiness Cubital tunnel syndrome Carpal tunnel syndrome Epistaxis History of ventral hernia ventral incisional herniaHistory of dizziness History of dizziness and giddinessHistory of peptic ulcer Spinal stenosis of lumbar region Spinal stenosis of cervical region Peripheral vascular disease Claudication Hypertensive disorder Tendonitis of long head of biceps brachii of right shoulder Surgical History S/P drug eluting coronary stent placement 01/19/24 [facility] [place] of incisional hernia repair History of arthroplasty of right shoulder S/P trigger finger release right ring fingerH/O Spinal surgery Lumbar spine surgery 2016Hx of cervical spine surgery 1988 H/O neck surgery 2016 anterior cervical discectomy w/plated fusion C3/4, 4/5, 5/6 H/O hernia repair 2017 H/O vascular surgery [id number] bypass per pt. History of surgery Partial removal of stomachHistory of knee surgery 1963, 1977 History of carpal tunnel release right 2019, right, left CTR 2016 History of colonoscopy History of cataract surgery 2019 left, 2020 right Status post arthroscopy of right shoulder (~2005) Social History/Home Situation: Lives with in a priavte home with 4 steps to enter with 1 rail. 2 falls in the past year. Loves to golf. Equipment Owned/DME: [employer] Subjective: Complained of lightheadedness that minimally impacted today's assessment needing a litttle rest after mobility assessment. Objective: General Observation: SUSIE wraps to R LE. Cryocuff on R knee. TEDS to L leg/foot. Mental Status: A and O x 4 Pain: 2/10 in the R knee ROM: Right Lower Extremity: Hip flexion WFL. Hip abduction WFL. Knee flexion WFL. Ankle dorsiflexion WFL. Ankle plantarflexion WFL. Left Lower Extremity: Hip flexion WFL. Hip abduction WFL. Knee flexion WFL. Ankle dorsiflexion WFL. Ankle plantarflexion WFL. Strength: Right Lower Extremity: Hip flexors 5/5. Hip abductors 5/5. Knee flexors 5/5. Knee extensors 5/5. Ankle dorsiflexors 5/5. Ankle plantarflexors 5/5. Left Lower Extremity:Hip flexors 5/5. Hip abductors 5/5. Knee flexors 5/5. Knee extensors 5/5. Ankle dorsiflexors 5/5. Ankle plantarflexors 5/5. Sensation: intact as to pain and light pressure in B LE Bed Mobility/Transfers: Minimal cueing provided for use of B hands as needed for support, movement sequence, AD management, and posture to reduce fall risk and minimize pain report Supine to sit stand by assist Sit to stand contact guard assit with FWW Stand to sit standby assist with FWW Bed to chair standby assist with FWW Gait: Facilitate safe and correct performance of level surface ambulation covering a distance of 100 feet using front wheeled walker with step to gait pattern with minimal verbal cueing provided for AD management, limb movement sequence, and posture to minimize pain reported and reduce fall risk. Stairs: Guided patient with safe and correct negotiation of 3 x 4- inch steps and 2 x 6 inch steps while holding onto rail and using a single-point cane on the other side with contact-guard assist and minimal verbal cueing for limb movement sequence, increased knee flexion on the right side during each ascent, hand placement, and posture to minimize pain reported and reduce fall risk. Balance: Static Sitting: Normal Dynamic Sitting: Normal Static Standing: Fair Dynamic Standing: Fair Special Tests: Mobility Limitations Standardized Measure [facility] AM-PAC 6 clicks Basic Mobility Inpatient Short Form: Raw Score: 22 CMS Score: 21% deficit Informed Consent/Education: Patient instructed in purpose of PT consult. Packet containing TKA exercise protocol has been given to patient. Education and training on initial set of exercises that can be done at home have been completed with patient. Trained patient with correct performance of exercises below to maximize motor control, joint flexibility, soft tissue extensibility of the R knee musculature: Access Code: [email or web address] URL: [email or web address] Date: 06/01/2023 Prepared by: Nely Yen Exercises - Supine Quad Set - 1 x daily - 7 x weekly - 1 sets - 10 reps - 5 hold - Supine Heel Slide - 1 x daily - 7 x weekly - 1 sets - 10 reps - 5 hold - Supine Ankle Pumps - 1 x daily - 7 x weekly - 1 sets - 10 reps - 5 hold - Small Range Straight Leg Raise - 1 x daily - 7 x weekly - 1 sets - 10 reps - 5 hold - Seated March - 1 x daily - 7 x weekly - 1 sets - 10 reps - 5 hold Assessment: Patient requires the use of a front wheeled walker for mobility ADL performance to maximize independence and reduce fall risk. Mobility performance limited today with reports of mild lightheadedness but with a short rest patient was able to complete today's assessment without issues. Patient presents with clinical signs and symptoms consistent with current/admitting diagnoses that have resulted to mobility limitations, gait instability, generalized weakness, and impairment of motor control as demonstrated by the following impairment level findings: 1. Decreased strength to R knee major muscle groups 2. Impaired standing balance 3. Limitation of joint range of motion in R knee Impairments are contributing to the following functional limitations: 1. Inability to safely ambulate without assistive device 2. Increase completion time for mobility ADL performance 3. Increased fall risk Patient is assessed as a [id number] moderate complexity based on the following: History: 84-year-old male with impairment level findings, functional limitations, and past medical history as indicated above Examination: Demonstrable impairment in strength, balance, and mobility level with underlying impairments and functional limitations as documented above Presentation: Evolving Decision Makin moderate complexity Goals: N/A. PT evaluation and 1-2 treatment sessions only for functional mobility training using recommended AD and for HEP instruction. Plan of Care/Treatment Plan: N/A. PT evaluation and 1-2 treatment session only for functional mobility training using recommended AD and for HEP instruction. DISCHARGE RECOMMENDATIONS: Home when medically cleared by orthopedic surgeon. Recommend outpatient PT services in order to optimize functional mobility outcomes and facilitate return to independent community ambulation without an assistive device. TREATMENT CODE/TIME: 28412 x 20 minutes for 1 unit, 81994 x 32 minutes for 2 units (11 0 6?11: 58). Thank you for the opportunity to participate in the care of this patient. Nely Yen PT, DPT, CLT [facility] [place], [place]
--- NOTE | 2025-06-01 11:29 | W.ANESPOSTOP ---
Postoperative Evaluation Date, Time and Location Date Performed: 06/01/25 Time Performed: 11:29 Patient Location: Day Surgery Unit Vital Signs Most Recent Imported Vital Signs: Most Recent Vital Signs Temp Pulse Resp BP Pulse Ox 36.1 C L 59 L 16 114/37 L 94 06/01/25 10:50 06/01/25 10:50 06/01/25 10:50 06/01/25 10:50 06/01/25 10:50 Pain Score Most Recent Pain Score: Most Recent Pain Score Pain Level 2 06/01/25 10:50 Assessment Mental Status: Awake (Alert & Oriented to Patient Baseline) Airway and Respiratory Function: Patent airway with normal (patient baseline) respiratory exam Cardiovascular Function: Hemodynamically Stable Hydration Status: Adequately Hydrated Nausea & Vomiting: No Nausea or Vomiting Pain: Pain is tolerable per patient Peripheral Nerve Block: Regional nerve block not resolved at time of post operative discharge
== END 2025-06-01 12:45 | disposition home or self-care (01) ==
PROVIDERS: PCP Neuromusculoskeletal Medicine & OMM; Visit Provider Student in an Organized Health Care Education/Training Program
PROC: (CPT 27447; principal; 2025-06-01 07:30)
DX: M17.11 Unilateral primary osteoarthritis, right knee (principal); G89.18 Other acute postprocedural pain
CPT/HCPCS: 27447; C1776; 64447; 64450; 97162; 97530; J0665; J0666; J0690; J1100; J1171; J1596; J2003; J2371; J2401; J2405; J2704; J3475

== ENCOUNTER 2025-06-15 14:00 | Outpatient (CLI) | payer MEDICARE, SELFPAY ==
--- NOTE | 2025-06-15 12:45 | DI.RAD_ITS ---
Exam(s) XR KNEE RT 1V XR STANDING ALIGNMENT EXAM: XR STANDING ALIGNMENT and XR knee RT 1 V CLINICAL HISTORY: 1ST POST OP S/P R TKA. TECHNIQUE: 2D digital imaging was performed. Five images were obtained. COMPARISON: CR XR KNEE RT 1V from 02/03/2025 CR XR STANDING ALIGNMENT from 02/03/2025 FINDINGS: BONES: There are degenerative changes seen in the hips bilaterally. There are moderately severe degenerative changes seen in the visualized lumbar spine. Since the prior examination, there has been placement of a right total knee arthroplasty. The orthopedic hardware appears in good position. There are no suspicious lucencies in or around the orthopedic hardware. In the left knee, there is moderate narrowing of the medial femoral tibial joint. Small osteophytes are seen both medially and laterally. The ankles are well maintained.There is no significant leg length discrepancy. SOFT TISSUE: Atherosclerotic calcification is present. IMPRESSION: 1. Unremarkable right total knee arthroplasty. 2. Moderate osteoarthritis of the left knee. DATA REPOSITORY: RADIATION DOSE DELIVERED:
== END 2025-06-15 14:01 | disposition home or self-care (01) ==
LOC: DIORS 06-16 09:36
PROVIDERS: PCP Neuromusculoskeletal Medicine & OMM; Referring Provider Neuromusculoskeletal Medicine & OMM; Visit Provider Physician Assistant
DX: Z47.1 Aftercare following joint replacement surgery (principal); Z96.651 Presence of right artificial knee joint
CPT/HCPCS: NC; 73560; 77073

== ENCOUNTER → 2025-07-13 12:51 | Outpatient (BNVA) | payer MEDICARE, SELFPAY | PROVIDERS: PCP Neuromusculoskeletal Medicine & OMM; Referring Provider Neuromusculoskeletal Medicine & OMM; Visit Provider Student in an Organized Health Care Education/Training Program | DX: G56.02 Carpal tunnel syndrome, left upper limb (principal); M17.12 Unilateral primary osteoarthritis, left knee; Z47.1 Aftercare following joint replacement surgery; Z96.651 Presence of right artificial knee joint | CPT/HCPCS: 20526; 20600; J1010 ==